=== PATIENT | female | born 1960 | race Caucasian/White ===

== ENCOUNTER 2018-03-29 13:08 | Emergency (ER) | payer OTHER ==
--- NOTE | 2018-03-29 14:29 | UC ---
Skin Complaint HPI - HPI Summary HPI Summary: 57 yr old very healthy white female here w/ rash on left groin. Here w/ her . Noticed a rash about 1-1/2 weeks ago. The vital topical [facility] and have many ticks around them. She has picked off many ticks off her body in the past couple of months. She did not see a tick in the area of this particular rash. Yesterday she started feeling fevers and chills and body aches and wonders if it's lyme disease. 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 - History of Current Complaint Time Seen by Provider: 03/29/18 14:04 Stated Complaint: TICK Hx Last Menstrual Period: hysterectomy october 2014 - Allergy/Home Medications Allergies/Adverse Reactions: Allergies Allergy/AdvReac Type Severity Reaction Status Date / Time meperidine [From Demerol] Allergy Nausea And Verified 03/29/18 14:21 Vomiting Review of Systems Constitutional: Fever, Chills Skin: Rash Eyes: Negative ENT: Negative Respiratory: Negative Cardiovascular: Negative Gastrointestinal: Negative Genitourinary: Negative Motor: Negative Neurovascular: Negative Musculoskeletal: Negative Neurological: Negative Psychological: Negative Is Patient Immunocompromised?: No All Other Systems Reviewed And Are Negative: Yes PMH/Surg Hx/FS Hx/Imm Hx Previously Healthy: Yes - Surgical History Surgery Procedure, Year, and Place: hysterectomy - Family History Known Family History: Positive: Cardiac Disease, Diabetes - Social History Alcohol Use: Weekly Substance Use Type: None Smoking Status (MU): Never Smoked Tobacco - Immunization History Most Recent Influenza Vaccination: no Physical Exam Triage Information Reviewed: Yes Appearance: Well-Appearing, No Pain Distress, Well-Nourished - very pleasant and very good historian Eye Exam: Normal ENT Exam: Normal ENT: Positive: Pharynx normal, TMs normal Dental Exam: Normal Neck exam: Normal Neck: Positive: Supple, Nontender, No Lymphadenopathy Respiratory Exam: Normal Respiratory: Positive: Lungs clear, Normal breath sounds, No respiratory distress, No accessory muscle use Cardiovascular Exam: Normal Cardiovascular: Positive: RRR, No Murmur, Pulses Normal, Brisk Capillary Refill Abdomen Description: Positive: Nontender, Soft Musculoskeletal Exam: Normal Neurological Exam: Normal Psychological Exam: Normal Skin: Positive: rashes - left groin w/ oval elevated rash, light pink, not deep red. blanching. central pore. no d/c. no streaks. no significant warmth. Course/Dx - Course Course Of Treatment: No known tic bite in the area of rash. howvere, she has picked many tics off from all over her body this year bc she is very active outdoors (lives at [place] of [facility]). + h/o bebiosis & lyme and has been told she would always test positive for lyme titer because of that. Rash is not bull's eye rash. Therefore we agreed that we will not draw lyme titer b/c it would be unlikely to change our course of therapy and may not give us an answer we need. -will treat with abx that would cover cellulitis and lyme. frequent course of abx for cellulitis is 14-20 days of abx, therefore will treat with 21 days of doxy bid that would cover lyme as well. she is very pleased. adv to pool area with sharpie and f/u in 2-3 days w/ PCP. avoid sun exposure b/c high sensitivity for sunburn while on doxy. she is reliable and assures me she will do so. -they are pleased w/ this plan. - Differential Diagnoses - Skin Complaint Differential Diagnoses: Other - lyme vs cellulitis - Diagnoses Provider Diagnoses: left groin rash, tic bites. Discharge - Sign-Out/Discharge Documenting (check all that apply): Discharge/Admit/Transfer - Discharge Plan Condition: Stable Disposition: HOME Patient Education Materials: Lyme Disease (ED), Cellulitis (ED) Referrals: Zhen Obrien MD [Primary Care Provider] - Additional Instructions: We talked about the uncertain diagnosis of lyme vs cellulitis and difficulty in dx due to previous bebiosis infection. Regardless, the treatment is similar. You are being prescribed doxycycline 100mgs 2x/day x 21 days. -Make sure to take a probiotic daily while on antibiotics to help prevent a potential complication of antibiotic use called c diff. Some well known brands that can be found OTC are florastor, align and [employer]. Make sure to complete the entire prescription unless advised otherwise by your health care provider. -You should go to the ER if you develop worsening chills, shaking or fevers. - Billing Disposition and Condition Condition: STABLE Disposition: Home
[2018-03-29 14:30] VITALS: BP 128/82
== END 2018-03-29 14:55 | disposition home or self-care (01) ==
LOC: UCCORT 13:08
DX: R21 Rash and other nonspecific skin eruption (principal); T14.8XXA Other injury of unspecified body region, initial encounter; W57.XXXA Bitten or stung by nonvenomous insect and other nonvenomous arthropods, initial encounter; Y93.9 Activity, unspecified; Y92.9 Unspecified place or not applicable; Z88.5 Allergy status to narcotic agent; Z86.19 Personal history of other infectious and parasitic diseases
CPT/HCPCS: 99212; G0463